=== PATIENT | female | born 1965 | race Caucasian/White ===

== ENCOUNTER 2016-11-29 09:11 | Emergency (ER) | payer MEDICARE ==
[~2016-11-29] VITALS: Ht 165.1 cm; Wt 122.7 kg
[~2016-11-29 09:11] MED LIST: ALBU2.5V4 IH; ALBU8.5H2 INHALATION; ASPI-628 PO; BACL10TA; BENZ-12 PO; ESOM40CA41 PO; FURO-128 PO; GABA-502 PO; IBUP-1827 PO; INSU100I SQ; INSU100I13 SUBQ; LOSA25TA21 PO; METO50TA3 PO; NITR0.4T SL; Novolog SQ; POTA10TA12 PO; PRAV80TA2; PRV40T PO; TOPI-59
[2016-11-29 09:14] VITALS: BP 144/90; PULSE 88; RESP 20; O2SAT 95
[2016-11-29] MEDS ORDERED: Tetracaine 0.5% 4 mL Ophthalmic Solution BOTH_EYES ONE (09:20)
[2016-11-29] MEDS ORDERED: Fluorescein 0.6 mg Ophthalmic Strip BOTH_EYES ONE (09:20)
--- NOTE | 2016-11-29 09:25 | ED.REPORT ---
HPI-Eye Problem Date of Service Nov 29, 2016 ED Provider: Irvin Lara MD The patient is a 51 year old female with history of somatization, diabetes mellitus, hypertension, hyperlipidemia, asthma, and coronary artery spasm, who was sent to the emergency department from urgent care for further evaluation. The patient has noticed intermittent right eye pressure over the last 2.5 weeks. Her symptoms have worsened since onset and she has also noticed a right temporal headache, pain behind her right eye, loss of vision on the right, and sinus congestion. She was initially seen at urgent care on the and was sent to the engagement executive and was seen there on the . She was told by the engagement executive that she had increased pressure on the right side. She denies photophobia, flashing light, or "curtain dropping down" sensation. She denies any eye injury or trauma. Nursing Notes Stated Complaint: EYE PAIN Chief Complaint: General Complaint Nursing Notes Reviewed: Yes Allergies: Coded Allergies: amoxicillin (Verified Allergy, Severe, rash, 06/06/16) hydromorphone (Verified Allergy, Severe, CHEST PAIN, 06/06/16) Chest Pain hydromorphone HCl (Verified Allergy, Severe, CHEST PAIN, 06/06/16) Chest Pain metformin (Verified Allergy, Severe, BACK PAIN,N,DIARRHEA, 06/06/16) morphine (Verified Allergy, Severe, instant headache, sharp chest pain, ) nitrofurantoin (Unverified Allergy, Severe, CHEST PAIN, 02/28/16) iodine (Verified Allergy, Intermediate, Shortness of Breath, 02/28/16) AFTER INJECTION PT EXPERIENCED CHEST PAIN,RAPID HEART RATE, SHORTNESS OF BREATH, NAUSEA. (IOVERSOL) EMILIO Inhibitors (Unverified Adverse Reaction, Severe, COUGH, 02/28/16) Scheduled ([Novolog]) 5-16 UNIT SQ TID-INSULIN Albuterol HFA (Proair HFA) 8.5 Gm Hfa.aer.ad 2 PUFFS INHALATION Q4H Aspirin (Aspir 81) 81 Mg Tablet.dr 81 MG PO DAILY Esomeprazole Magnesium (Nexium) 40 Mg Capsule.dr 40 MG PO BID Furosemide (Lasix) 40 Mg Tablet 40 MG PO BID AM & NOON Insulin Glargine (Lantus U100 Solostar Insulin Pen) 100 Unit/1 Ml Insuln.pen 24 UNIT SUBQ QPM-INSULIN Losartan Potassium (Losartan Potassium) 25 Mg Tablet Unknown Dose PO DAILY Metoprolol Tartrate (Metoprolol Tartrate) 50 Mg Tablet 75 MG PO BID Pravastatin (Pravachol) 40 Mg Tab 80 MG PO HS Scheduled PRN Albuterol Neb Soln (Albuterol Neb Soln) 2.5 Mg/3 Ml Vial.neb 2.5 MG IH TID PRN PRN For Shortness of Breath Benzonatate (Tessalon Perle) 100 Mg Capsule 100 MG PO TID PRN PRN For Cough Ibuprofen (Ibuprofen) 600 Mg Tablet 600 MG PO DAILY PRN PRN For Pain Nitroglycerin SL (Nitrostat) 0.4 Mg Tab.subl 0.4 MG SL Q5MIN PRN PRN ANGINA Miscellaneous Medications Baclofen (Baclofen) 10 Mg Tablet Gabapentin (Gabapentin) 300 Mg Capsule Insulin Aspart (NovoLOG U-100 Pen) 100 Unit/Ml Insuln.pen Potassium Chloride ER (Potassium Chloride ER) 10 Meq Tablet Pravastatin (Pravastatin) 80 Mg Tablet Topiramate (Topiramate) 25 Mg Tablet General Time Seen by MD: 09:19 Chief Complaint Right eye affected, Pain Hx Obtained From: Patient Arrived By: Walk-in Sudden in Onset?: No Onset Occurred: More than a week ago... Symptom Duration: Since onset Progression Since Onset: Constant, Gradually worsening Location: : Eye right Quality: Pressure Severity: Current: Moderate Severity: Maximum: Severe Recent Healthcare: No recent hospitalization, Recent doctor visit Similar Sx Previous: Yes Past Medical History Past Medical History liver disease coronary artery spasm Somatization disorder pancreatitis Reports: Asthma, Diabetes mellitus, Hyperlipidemia, Hypertension Past Surgical History breast lump removed Reports: Angioplasty, Cholecystectomy, Hysterectomy Family History iron infusions Smoking History Never Smoker Social History Alcohol Use: Denies alcohol use Drug Use: Denies drug use Other Social History: , Local resident Occupation lives with 4 children Ambulatory Status Independent Review of Systems Eyes: Reports: Eye pain right, Visual loss right, Denies: Photophobia Ears / Nose / Throat: Reports: Sinus problem Neurologic: Reports: Headache Complete sys rev & neg: except as marked. Physical Exam Initial Vital Signs Vital Signs (First) Date Time Temp Pulse Resp B/P Pulse Ox O2 Delivery O2 Flow Rate FiO2 11/29/16 09:14 36.7 88 20 144/90 95 Room Air Initial VS: Reviewed ENT: Mucous membranes moist, Conjunctiva normal, No scleral icterus Neck: Supple, Non-tender, Full range of motion Respiratory: Breath sounds normal, Clear to auscultation, No respiratory distress Abdomen / GI: Soft, Non-tender, No guarding, No rebound, No distention Lymphatic: No lymphadenopathy Extremities: Vascular intact, Neuro intact, No swelling, No tenderness Skin: Warm, Dry, No cyanosis Neurologic: Alert, Oriented, Nonfocal Psychiatric: Mood/affect normal, Behavior normal, Normal thought content Head / Eyes: Atraumatic, Normocephalic, PERRL, EOMI, No photophobia, Conjunctiva NL, No corneal abrasion Cornea/Anterior Chamber: Negative: Abrasion L..., Abrasion R..., Foreign body L..., Foreign body R... Conjunctiva / Sclera: Negative: Injected left, Injected right Pupils are 3 mm and reactive bilaterally. Jun-Pen pressures: right eye shows 19 and 20, left eye shows 15 and 20. General/Constitutional: Awake, Alert, Cooperative Cardiovascular: Heart rate NL, Regular rhythm, Heart sounds NL, No murmurs, No rubs, Peripheral circulation NL Wearing a Holter Monitor Re-Eval/Medical Decision Med Decision/Clinical Course The patient is a 51 year old female with history of somatization disorder, diabetes mellitus, hypertension, hyperlipidemia, asthma, and coronary artery spasm, who was sent to the emergency department from urgent care for further evaluation of right sided eye pain and vague visual symptoms. The patient has been having intermittent pressure/sharp pain behind her right eye sometimes associated with vague patient changes for the last several weeks and has been evaluated by her neurologist as well as engagement executive. She reports that her IOP on the right was measured at 22 by her engagement executive was told that this was not concerning for glaucoma and that her eye symptoms were not likely related to any acutely concerning process. This is patient's report. Today the patient's visual acuity without corrective lenses is as below, she is not sure what her baseline visual acuity is without her glasses on: 10/25 L 10/40 R Intraocular pressures today were measured as below: 19 R 15 L Fluorescein exam revealed no corneal abrasions, ulcerations. There is no foreign bodies present in her eye. There is no evidence of head trauma. She had no focal neurologic signs or symptoms suggestive of intracranial mass lesion or hemorrhage. The duration and intermittent nature of her symptoms is quite vague. I see no immediate indication to obtain neuro imaging studies. Her presentation is not suggestive of central retinal artery occlusion or central retinal vein occlusion. Her symptoms are not suggestive of retinal detachment or vitreous hemorrhage. I contacted the engagement executive marketing production manager and discussed the patient's case Contacted on-call engagement executive Dr. Correa and reviewed the patient's case thus far. It is not felt that the patient is presenting with any signs or symptoms concerning for an ophthalmologic emergency. He does not feel that the patient requires emergent ophthalmologic evaluation today and that the patient can reasonably follow up with her engagement executive in the coming week. The patient will call for an appointment. Of note the patient does report symptoms related to sinusitis which does not clinically appear to be bacterial in nature. I wonder if some of her pain is related to sinus congestion. She is advised to use in the department and take [id number] Tylenol or Sudafed as needed. She was provided with follow-up return precautions including any worsening pain, vision changes, vision loss or other concerning signs or symptoms. She verbalized understanding and agreeable with the plan and was discharged in good condition. Source of Hx: Old records Re-Evaluation/Progress : Time of Eval: 10:08 Re-Evaluation/Progress Note: Rechecked the patient. Discussed plan for discharge and outpatient followup. All questions were addressed. Consultation : Referral / Consult Name: FEI CORREA MD Consulted With: Fig Bar Machine Operator Call Returned at: 10:02 Benzene Washer: Agrees with eval, Agrees with plan Note: He recommends outpatient followup tomorrow. Counseled Regarding: Diagnosis, Need for follow-up, When/why to return to ED Discharge & Departure Primary Impression: Eye pressure Additional Impression: Sinus congestion Disposition: Home Discharge Condition All VS Reviewed: Yes Condition: Stable Patient Instructions: Sinusitis (ED) Additional Instructions: Thank you for seeking care at the emergency room. Your eye pressure is at your normal baseline. There is no evidence of acute glaucoma right now. Our primary goal today in the ED was to evaluate you for any life-threatening conditions. Your evaluation was reassuring. If you notice visual changes you should followup with your engagement executive. You should followup with your primary care provider in the next week for further evaluation. You can take Ibuprofen and Sudafed as needed for your sinus congestion and discomfort. You can also try using a NetiPot if that helps. You should return to the ED immediately if you develop vision loss, worsening pain, headache, fever, nausea, vomiting, numbness, tingling, weakness or any other concerning signs or symptoms. Thank you for letting us partake in your care today. Referrals: Pennie Mcallister MD (PCP) Deanne Baker MD Attestation Portions of this note were transcribed by Emily Almonte. I, Dr. Lara personally performed the history, physical exam and medical decision-making; I reviewed and confirmed the accuracy of the information in the transcribed note. Signed by: Gabrielle Buchanan, 11/29/2016 and 1015. copies to: Deanne Baker MD; Pennie Mcallister MD, Beck O MD Nov 29, 2016 09:25 Emily Almonte Nov 29, 2016 09:34
[2016-11-29 10:13] VITALS: BP 141/68; PULSE 79; RESP 18; O2SAT 99
[2017-01-13] MEDS ORDERED: RANI150C4 PO (14:37)
[2017-01-13] MEDS ORDERED: SUCR1TAB30 PO (14:37)
== END 2016-11-29 10:14 | disposition home or self-care (01) ==
LOC: SED 09:11
DX: H57.11 Ocular pain, right eye (principal); R09.81 Nasal congestion; H54.61 Unqualified visual loss, right eye, normal vision left eye; E78.5 Hyperlipidemia, unspecified; J45.909 Unspecified asthma, uncomplicated; E11.9 Type 2 diabetes mellitus without complications; Z79.4 Long term (current) use of insulin; Z79.82 Long term (current) use of aspirin; Z88.1 Allergy status to other antibiotic agents; Z88.5 Allergy status to narcotic agent; Z88.8 Allergy status to other drugs, medicaments and biological substances
CPT/HCPCS: 99283; G0463